=== PATIENT | female | born 1945 | race Caucasian/White ===

== ENCOUNTER 2017-01-18 19:27 | Emergency (ER) | payer MEDICARE ==
[~2017-01-18] VITALS: Ht 162.6 cm; Wt 89.0 kg
[2017-01-18 19:36] VITALS: BP 133/74; PULSE 76; RESP 16; TEMP 98.3; O2SAT 95
[2017-01-18] MEDS ORDERED: LEVO112T2 PO (19:44)
[2017-01-18] MEDS ORDERED: ESZO1TAB PO (19:53)
[2017-01-18] MEDS ORDERED: ROPI0.5T PO (19:53)
[2017-01-18] MEDS ORDERED: HYDR25TA5 PO (19:53)
[2017-01-18] MEDS ORDERED: FLEC100T PO (19:53)
[2017-01-18] MEDS ORDERED: VALT500T PO (19:53)
[2017-01-18] MEDS ORDERED: TIMO0.5S4 EACH EYE (19:53)
[2017-01-18] MEDS ORDERED: ACET500C4 PO (19:53)
[2017-01-18] MEDS ORDERED: LIPI40TA PO (19:53)
[2017-01-18] MEDS ORDERED: FENO145T2 PO (19:53)
[2017-01-18] MEDS ORDERED: DILT120T PO (19:53)
--- NOTE | 2017-01-18 19:54 | PD ---
HPI Chief Complaint: General Weakness Time Seen by Provider: 19:41 Travel History International Travel<30 days: No Contact w/Intl Traveler<30days: No Traveled to known affect area: No History of Present Illness HPI The patient is a 71-year-old female that is vacationing from [place] who for the past 3 days complains of being fatigued and low energy. She states she went to the [employer] station and they told her to go get it checked out. She denies any fever, nausea, vomiting, diarrhea, cough, sore throat, chest pain but does have some slight shortness of breath. She has been in the sun a lot lately. PFSH Past Medical History ?: Not Social History Tobacco Use: No Allergies-Medications (Allergen,Severity, Reaction): Coded Allergies: No Known Allergies (Unverified , 01/18/17) Reported Meds & Prescriptions Reported Meds & Active Scripts Active Reported Timoptic-Xe Opth Gel (Timolol Opth Gel) 0.5 % Gel 1 Drop EACH EYE BID Acetazolamide ER 12 HR (Acetazolamide) 500 Mg Cap 500 Mg PO BID Hydrochlorothiazide 25 Mg Tab 25 Mg PO DAILY Ropinirole 0.5 Mg Tab 0.5 Mg PO HS Lipitor (Atorvastatin Calcium) 40 Mg Tab 40 Mg PO HS Lunesta (Eszopiclone) 2 Mg Tab 3 Mg PO HS PRN Diltiazem (Diltiazem HCl) 120 Mg Tab 120 Mg PO BID Flecainide (Flecainide Acetate) 100 Mg Tab 100 Mg PO BID Fenofibrate 145 Mg Tab 145 Mg PO DAILY Valtrex (Valacyclovir HCl) 500 Mg Tab 500 Mg PO DAILY PRN Levothyroxine (Levothyroxine Sodium) 112 Mcg Tab 112 Mcg PO DAILY Review of Systems Except as stated in HPI: all other systems reviewed are Neg Physical Exam Narrative GENERAL: The patient is obese, alert, oriented 3 in no respiratory distress. Her vital signs are normal. SKIN: Focused skin assessment warm/dry. HEAD: Atraumatic. Normocephalic. EYES: Pupils equal and round. No scleral icterus. No injection or drainage. ENT: No nasal bleeding or discharge. Mucous membranes pink and moist. NECK: Trachea midline. No JVD. CARDIOVASCULAR: Regular rate and rhythm. No murmur appreciated. RESPIRATORY: No accessory muscle use. Clear to auscultation. Breath sounds equal bilaterally. GASTROINTESTINAL: Abdomen soft, non-tender, nondistended. Hepatic and splenic margins not palpable. Laparoscopic technique appendectomy and cholecystectomy scars are noted. No guarding or rebound is present. MUSCULOSKELETAL: No obvious deformities. No clubbing. No cyanosis. No edema. NEUROLOGICAL: Awake and alert. No obvious cranial nerve deficits. Motor grossly within normal limits. Normal speech. PSYCHIATRIC: Appropriate mood and affect; insight and judgment normal. Data Data Last Documented VS Vital Signs Date Time Temp Pulse Resp B/P Pulse Ox O2 Delivery O2 Flow Rate FiO2 01/18/17 19:36 98.3 76 16 133/74 95 Orders Electrocardiogram-Peds (01/18/17 19:51) Complete Blood Count With Diff (01/18/17 19:51) Comprehensive Metabolic Panel (01/18/17 19:51) Troponin I (01/18/17 19:51) Urinalysis - C+S If Indicated (01/18/17 19:51) Magnesium (Mg) (01/18/17 19:51) Thyroid Stimulating Hormone (01/18/17 19:51) Labs Laboratory Tests Test 01/18/17 01/18/17 20:05 20:18 Urine Color STRAW Urine Turbidity CLEAR Urine pH 6.0 Urine Specific [place] 1.006 Urine Protein NEG mg/dL Urine Glucose (UA) NEG mg/dL Urine Ketones NEG mg/dL Urine Occult Blood NEG Urine Nitrite NEG Urine Bilirubin NEG Urine Leukocyte Esterase NEG Urine RBC 0-2 /hpf Urine WBC 0-2 /hpf Urine Squamous Epithelial 0-5 /hpf Cells Urine Bacteria RARE /hpf Microscopic Urinalysis Comment CULT NOT INDICATED White Blood Count 4.8 TH/MM3 Red Blood Count 4.35 MIL/MM3 Hemoglobin 13.6 GM/DL Hematocrit 39.0 % Mean Corpuscular Volume 89.5 FL Mean Corpuscular Hemoglobin 31.3 PG Mean Corpuscular Hemoglobin 34.9 % Concent Red Cell Distribution Width 12.3 % Platelet Count 412 TH/MM3 Mean Platelet Volume 6.9 FL Neutrophils (%) (Auto) 61.2 % Lymphocytes (%) (Auto) 23.9 % Monocytes (%) (Auto) 9.0 % Eosinophils (%) (Auto) 5.0 % Basophils (%) (Auto) 0.9 % Neutrophils # (Auto) 3.0 TH/MM3 Lymphocytes # (Auto) 1.2 TH/MM3 Monocytes # (Auto) 0.4 TH/MM3 Eosinophils # (Auto) 0.2 TH/MM3 Basophils # (Auto) 0.0 TH/MM3 CBC Comment DIFF FINAL Differential Comment Sodium Level 142 MEQ/L Potassium Level 3.5 MEQ/L Chloride Level 105 MEQ/L Carbon Dioxide Level 27.5 MEQ/L Anion Gap 10 MEQ/L Blood Urea Nitrogen 22 MG/DL Creatinine 0.90 MG/DL Estimat Glomerular Filtration 62 ML/MIN Rate Random Glucose 117 MG/DL Calcium Level 9.2 MG/DL Magnesium Level 1.6 MG/DL Total Bilirubin 0.3 MG/DL Aspartate Amino Transf 31 U/L (AST/SGOT) Alanine Aminotransferase 40 U/L (ALT/SGPT) Alkaline Phosphatase 72 U/L Troponin I LESS THAN 0.02 NG/ML Total Protein 7.3 GM/DL Albumin 3.6 GM/DL Thyroid Stimulating Hormone 0.365 uIU/ML 3rd Gen [facility] Medical Decision Making Medical Screen Exam Complete: Yes Emergency Medical Condition: Yes Medical Record Reviewed: Yes Interpretation(s) The CBC is normal. The complete metabolic profile shows a BUN of 22, GFR of 62 but is otherwise unremarkable. The urinalysis is normal. The EKG shows left bundle-branch block but no acute ST elevation or depression. Differential Diagnosis Dehydration, sun exposure, fatigue etiology undetermined, electrolyte disorder, hypo-/hyperglycemia, anemia, renal insufficiency, urinary tract infection, depression, alcohol side effect, dehydration Narrative Course I cannot find any specific cause for the patient's weakness there are laboratory work. Possibilities are not limited to but certainly include excessive sun exposure, side effects of alcohol, inadequate sleep. There is no evidence for depression in this patient. Impression: Generalized fatigue etiology undetermined Diagnosis Primary Impression: Fatigue Additional Instructions: As we discussed, stay out of the sun, drink plenty of liquids, avoid alcohol and rest. He may simply be that you overdid it here. Med/Other Pt SpecificInfo: No Change to Meds Disposition: 01 DISCHARGE HOME Condition: Stable Mario Smiley MD Jan 18, 2017 19:54
[2017-01-18 20:08] LABS: BLOOD, URINE NEG (NEG); GLUCOSE,URINE NEG (NEG); KETONE, URINE NEG (NEG); NITRITE,URINE NEG (NEG)
[2017-01-18 20:15] LABS: URINE COLOR STRAW (YELLW/STRAW)
[2017-01-18 20:16] LABS: BACTERIA, URINE RARE /hpf; COMMENT (UR) CULT NOT INDICATED; CULTURE IF INDICATED CULT NOT INDICATED; RBC, URINE 0-2 /hpf (0-3); SQUAMOUS EPITHELIAL CELL URINE 0-5 /hpf (0-5); WBC, URINE 0-2 /hpf (0-5)
[2017-01-18 20:22] LABS: BASOPHIL % 0.9 % (0.0-2.0); EOSINOPHIL # 0.2 TH/MM3 (0-0.4); HEMO FLAGS DIFF FINAL; LYMPH % 23.9 % (9.0-44.0); LYMPHOCYTE # 1.2 TH/MM3 (1.0-4.8); MEAN CELL VOLUME 89.5 FL (80.0-100.0); MEAN CORPUSCULAR HEMOGLOBIN 31.3 PG (27.0-34.0); MEAN CORPUSCULAR HGB CONC 34.9 % (32.0-36.0); NEUT % 61.2 % (16.0-70.0); PLATELET COUNT 412 TH/MM3 (150-450); RED BLOOD COUNT 4.35 MIL/MM3 (4.00-5.30); RED CELL DISTRIBUTION WIDTH 12.3 % (11.6-17.2); WHITE BLOOD COUNT 4.8 TH/MM3 (4.0-11.0)
[2017-01-18 20:30] LABS: CHLORIDE 105 MEQ/L (98-107); POTASSIUM 3.5 MEQ/L (3.5-5.1); SODIUM (NA) 142 MEQ/L (136-145)
[2017-01-18 20:33] LABS: ANION GAP 10 MEQ/L (5-15); BICARBONATE 27.5 MEQ/L (21.0-32.0); MAGNESIUM 1.6 MG/DL (1.5-2.5)
[2017-01-18 20:34] LABS: BLOOD UREA NITROGEN 22 MG/DL (7-18)
[2017-01-18 20:36] LABS: ALT (GPT) 40 U/L (10-53)
[2017-01-18 20:37] LABS: AST (GOT) 31 U/L (15-37); GLOMERULAR FILTRATION RATE 62 ML/MIN (>89)
[2017-01-18 20:38] LABS: TOTAL BILIRUBIN ADULT 0.3 MG/DL (0.2-1.0)
[2017-01-18 20:39] LABS: ALKALINE PHOSPHATASE 72 U/L (45-117)
[2017-01-18 21:21] VITALS: BP 135/65
--- NOTE | 2017-01-19 12:13 | EKG ---
Date Performed: 01/18/2017 Time Performed: 20:05:18 PTAGE: 71 years EKG: Sinus rhythm LEFT BUNDLE BRANCH BLOCK ABNORMAL ECG NO PREVIOUS TRACING DOCTOR: Lex Harvey Interpretating Date/Time 01/19/2017 12:12:01
== END 2017-01-18 21:22 | disposition home or self-care (01) ==
LOC: PHED 19:27
DX: R53.83 Other fatigue (principal); I44.7 Left bundle-branch block, unspecified; Z79.899 Other long term (current) drug therapy
CPT/HCPCS: 80053; 81001; 83735; 84443; 84484; 85025; 93005; 99283